=== PATIENT | male | born 1955 | race Caucasian/White ===

== ENCOUNTER 2017-01-10 09:08 | Emergency (ER) | payer OTHER ==
[~2017-01-10] VITALS: Wt 82.0 kg
[~2017-01-10 09:08] MED LIST: ACET500C5 PO; GLIP5TAB13 PO; IBUP-1542 PO; LANT3I SC; METF-382 PO; OSLT75C PO; SITA50TA2 PO; UDROBDM PO
--- NOTE | 2017-01-10 10:15 | RADRPT ---
PROCEDURE: XR Chest. CLINICAL INDICATION: Cough and fever. TECHNIQUE: Single frontal view. COMPARISON: 09/10/2015. FINDINGS: The lungs are clear. The heart size is normal. There is no pleural effusion. There is no pneumothorax. IMPRESSION: 1. Normal chest radiograph. 2. No change from 09/10/2015. RPTAT: QQ .Kevon Peña MD, MD Date Time Electronically viewed and signed by .Kevon Peña MD, MD on 01/10/2017 10:15 .R/
[2017-01-10] MEDS ORDERED: D-ME473S18 PO (10:17)
[2017-01-10] MEDS ORDERED: SIME80TA PO (10:18)
[2017-01-10] MEDS ORDERED: DOCU-144 PO (10:18)
--- NOTE | 2017-01-10 10:22 | ERD ---
ER Documentation Chief Complaint Date/Time DATE: 01/10/17 TIME: 10:20 Chief Complaint COUGH AND SORE THROAT FOR THE PAST FEW DAYS. NO FEVERS HPI This is a 62-year-old male presents to the ER with a cough and sore throat that started yesterday. Cough is dry and constant. She denies any chest pain or shortness of breath. He denies any ear pain. He denies any ear pain. Patient states he has been bloated lately and has a difficult time having a bowel movement. Patient's last normal bowel movement was last night. Patient states however he spends 15-30 minutes trying to have a bowel movement. He denies any nausea vomiting or diarrhea. ROS 12 point review of systems was done, all negative except per HPI. Medications Home Meds Active Scripts Docusate Sodium* (Colace*) 100 Mg Capsule, 100 MG PO TID, #30 CAP Prov:SHAVONNE NASSAR 01/10/17 Simethicone* (Anti-Gas/80*) 80 Mg Tab.chew, 80 MG PO Q6H Y for DISTENSION/GAS/ BLOATING for 3 Days, TAB.CHEW Prov:SHAVONNE NASSAR 01/10/17 Dextromethorphan Hb-Promethazine Hcl (Promethazine DM Syrup) 473 Ml Syrup, 10 ML PO Q6H Y for COUGH, #4 OZ Prov:SHAVONNE NASSAR 01/10/17 Guaifenesin-Dextromethorphan* (Robitussin* DM) 100MG/10MG/5ML Syrup, 10 ML PO Q4H Y for COUGH for 5 Days, ML Prov:ELPIDIO BOONE PA-C 11/01/16 Acetaminophen* (Tylophen*) 500 Mg Capsule, 1 CAP PO Q6H Y for PAIN AND OR ELEVATED TEMP, #30 CAP Prov:ELPIDIO BOONE PA-C 11/01/16 Ibuprofen* (Motrin*) 600 Mg Tab, 600 MG PO Q6, #30 TAB Prov:ELPIDIO BOONE PA-C 11/01/16 Oseltamivir Phosphate* (Tamiflu*) 75 Mg Capsule, 75 MG PO BID for 5 Days, CAP Prov:ELPIDIO BOONE PA-C 11/01/16 Reported Medications Insulin Glargine* (Lantus*) 100 Unit/Ml Soln, 30 UNIT SC HS, EA 09/10/15 Sitagliptin* (Januvia*) 50 Mg Tablet, 50 MG PO DAILY, TAB 09/10/15 Glipizide* (Glipizide*) 5 Mg Tablet, 5 MG PO DAILY, TAB 09/10/15 Metformin Hcl* (Metformin Hcl*) 500 Mg Tablet, 500 MG PO BID, TAB 09/10/15 Allergies Allergies: Coded Allergies: No Known Allergy (Unverified , 09/10/15) PMhx/Soc Hx Neurological Disorder: Yes (cva) Hx Miscellaneous Medical Probl: Yes (dm prostate enlargement; diabetes mellitus ) Hx Alcohol Use: No Hx Substance Use: No Hx Tobacco Use: No Smoking Status: Never smoker Physical Exam Vitals Vital Signs Date Time Temp Pulse Resp B/P Pulse Ox O2 Delivery O2 Flow Rate FiO2 01/10/17 09:18 98.8 92 21 163/82 98 Physical Exam GENERAL: The patient is well-developed, well-nourished, in no acute distress. NECK: Cervical spine is non tender with no step off. Supple, no nuchal rigidity HEENT: Atraumatic. Pupils equal, round and reactive to light. Extraocular muscles are grossly intact. Conjunctivae pink, no discharge. Bilateral tympanic membranes are clear with no evidence of erythema, effusion or dulling of the light reflex. Tonsilar erythema with no exudates or uvular deviation. Clear rhinorrhea. RESPIRATORY: Clear to auscultation bilaterally. There are no rales, wheezes or rhonchi. HEART: Regular rate and rhythm. No murmurs, clicks, rubs or gallops. EXTREMITIES: No clubbing or cyanosis. Full range of motion. Grossly neurovascularly intact. NEUROLOGIC: Alert and oriented. Cranial nerves II through XII are intact. SKIN: There is no rash. The skin is warm and dry. Procedures/MDM Differential diagnosis includes but is not limited to; Viral URI, allergic rhinitis, bronchitis, pertussis,pneumonia. This is likely viral in etiology. Clinical suspicion for pneumonia is low as patient appears well, is not hypoxic or in any respiratory distress. Additionally, patients physical examination is benign. Plan was discussed with patient they understand and agree. Patient needs to follow up with PCP in 1-2 days or return to ER sooner if symptoms worsen. Departure Diagnosis: Primary Impression: Upper respiratory infection Condition: Stable Patient Instructions: Preventing Common Respiratory Infections Additional Instructions: Call your primary care doctor TOMORROW for an appointment during the next 1-2 days.See the doctor sooner or return here if your condition worsens before your appointment time. SHAVONNE NASSAR Jan 10, 2017 10:21
== END 2017-01-10 10:32 | disposition home or self-care (01) ==
LOC: FTE 09:08
DX: J06.9 Acute upper respiratory infection, unspecified (principal); E11.9 Type 2 diabetes mellitus without complications; Z79.4 Long term (current) use of insulin; Z79.84 Long term (current) use of oral hypoglycemic drugs
CPT/HCPCS: 71010; Z7502

== ENCOUNTER 2017-01-22 22:22 | Emergency (ER) | payer OTHER ==
[~2017-01-22] VITALS: Ht 177.8 cm; Wt 89.0 kg
[~2017-01-22 22:22] MED LIST changes: +D-ME473S18 PO; +DOCU-144 PO; +SIME80TA PO
[2017-01-22 22:24] VITALS: Ht 177.8 cm; Wt 89.0 kg
--- NOTE | 2017-01-22 22:33 | ERA ---
ER Documentation Chief Complaint Date/Time DATE: 01/22/17 TIME: 22:32 Chief Complaint Cough HPI The patient is a 62-year-old male, presenting to the ER because of persistent dry cough for the last 2 weeks after he got over a cold. He denies fever, chills, neck pain, chest pain, dyspnea, abdominal pain, vomiting, diarrhea, dysuria. He does not smoke nor drink Past medical history: Diabetes mellitus, BPH Past surgical history: None ROS All systems reviewed and are negative except as per history of present illness. Medications Home Meds Active Scripts Azithromycin* (Zithromax*) 250 Mg Tablet, 250 MG PO .ZPACK DIRECTED, #6 TAB TAKE 500 MG (2 TABS) THE FIRST DAY THEN 250 MG (1 TAB) DAYS 2-5 Prov:VERONICA DIAZ MD 01/22/17 Docusate Sodium* (Colace*) 100 Mg Capsule, 100 MG PO TID, #30 CAP Prov:SHAVONNE NASSAR 01/10/17 Simethicone* (Anti-Gas/80*) 80 Mg Tab.chew, 80 MG PO Q6H Y for DISTENSION/GAS/ BLOATING for 3 Days, TAB.CHEW Prov:SHAVONNE NASSAR 01/10/17 Dextromethorphan Hb-Promethazine Hcl (Promethazine DM Syrup) 473 Ml Syrup, 10 ML PO Q6H Y for COUGH, #4 OZ Prov:SHAVONNE NASSAR 01/10/17 Guaifenesin-Dextromethorphan* (Robitussin* DM) 100MG/10MG/5ML Syrup, 10 ML PO Q4H Y for COUGH for 5 Days, ML Prov:ELPIDIO BOONE PA-C 11/01/16 Acetaminophen* (Tylophen*) 500 Mg Capsule, 1 CAP PO Q6H Y for PAIN AND OR ELEVATED TEMP, #30 CAP Prov:ELPIDIO BOONE PA-C 11/01/16 Ibuprofen* (Motrin*) 600 Mg Tab, 600 MG PO Q6, #30 TAB Prov:ELPIDIO BOONE PA-C 11/01/16 Oseltamivir Phosphate* (Tamiflu*) 75 Mg Capsule, 75 MG PO BID for 5 Days, CAP Prov:ELPIDIO BOONE PA-C 11/01/16 Reported Medications Insulin Glargine* (Lantus*) 100 Unit/Ml Soln, 30 UNIT SC HS, EA 09/10/15 Sitagliptin* (Januvia*) 50 Mg Tablet, 50 MG PO DAILY, TAB 09/10/15 Glipizide* (Glipizide*) 5 Mg Tablet, 5 MG PO DAILY, TAB 09/10/15 Metformin Hcl* (Metformin Hcl*) 500 Mg Tablet, 500 MG PO BID, TAB 09/10/15 Allergies Allergies: Coded Allergies: No Known Allergy (Unverified , 09/10/15) PMhx/Soc Hx Neurological Disorder: Yes (cva) Hx Miscellaneous Medical Probl: Yes (dm prostate enlargement; diabetes mellitus ) Hx Alcohol Use: No Hx Substance Use: No Hx Tobacco Use: No Physical Exam Vitals Vital Signs Date Time Temp Pulse Resp B/P Pulse Ox O2 Delivery O2 Flow Rate FiO2 01/22/17 23:15 97.3 98 19 129/74 97 Room Air 01/22/17 22:24 96.9 101 20 136/62 96 Physical Exam Const: No acute distress. Head: Atraumatic. Eyes: Normal Conjunctiva. ENT: Normal External Ears, Nose and Mouth. Bilateral tympanic membrane and oropharynx are within normal limits Neck: Full range of motion. No meningismus. Resp: Clear to auscultation bilaterally. Cardio: Regular rate and rhythm, no murmurs. Abd: Soft, non distended, normal bowel sounds, non tender. Skin: No petechiae or rashes. Back: No midline or flank tenderness. Ext: No cyanosis, or edema. Neur: Awake and alert. No focal deficit Psych: Normal Mood and Affect. Procedures/MDM MEDICAL MAKING DECISION: The patient is a 62-year-old male, presenting with acute bronchitis. The differential diagnoses considered include but are not limited to asthma, COPD, pneumonia, pulmonary embolus, pleural effusion, congestive heart failure. Departure Diagnosis: Primary Impression: Bronchitis Condition: Good Comments He was discharged with Zithromax, he already has cough medicine I discussed the findings with the patient. I advised the patient to follow-up with the primary physician in about 1-2 days, sooner if needed and return if any concern. The patient's blood pressure was elevated (>120/80) but appears stable without evidence of hypertension emergency or urgency. The patient was counseled about the risks of hypertension and urged to pursue outpatient monitoring and therapy within a week with their primary care physician. VERONICA DIAZ MD Jan 22, 2017 22:33
[2017-01-22] MEDS ORDERED: AZIT250T94 PO (22:56)
[2017-01-22 23:15] VITALS: BP 129/74; PULSE 98; RESP 19; TEMP 97.3
== END 2017-01-22 23:15 | disposition home or self-care (01) ==
LOC: FTE 22:22
DX: J20.9 Acute bronchitis, unspecified (principal); E11.9 Type 2 diabetes mellitus without complications; Z79.4 Long term (current) use of insulin; Z79.84 Long term (current) use of oral hypoglycemic drugs
CPT/HCPCS: 99283

== ENCOUNTER 2017-03-22 10:05 | Emergency (ER) | payer OTHER ==
[~2017-03-22] VITALS: Ht 165.1 cm; Wt 90.5 kg
[~2017-03-22 10:05] MED LIST changes: +AZIT250T94 PO; -METF-382 PO; +METF500T4 PO
[2017-03-22 10:08] VITALS: Ht 165.1 cm; Wt 90.5 kg
--- NOTE | 2017-03-22 10:27 | ERD ---
ER Documentation Chief Complaint Date/Time DATE: 03/22/17 TIME: 10:25 Chief Complaint tooth pain HPI 62-year-old male who presents to the emergency department for right upper tooth pain since Thursday. Denies headache, loss of consciousness, dizziness, blurry vision, changes in vision, photophobia, facial pain, ear pain, throat pain, difficulty swallowing, neck pain, shoulder pain, chest pain, cough, hemoptysis, abdominal pain, back pain, loss of appetite, nausea, vomiting, hematochezia, diarrhea, constipation, urinary symptoms, bladder and bowel incontinences, extremity weakness, extremity tenderness, numbness or tingling sensation, difficulty walking, recent travel, recent exposure to illness, recent antibiotic use in the last 3 months, fever, chills. No known drug allergies. Past medical history of diabetes and prostate problem. Denies surgical history. Medication: Reviewed. Social history: Not working at this time. Denies smoking, use of alcohol, use of illegal drugs. ROS All systems reviewed and are negative except as per history of present illness. Medications Home Meds Active Scripts Ibuprofen* (Motrin*) 800 Mg Tab, 800 MG PO Q8, #30 TAB Prov:RAFAELILABANVIKYAR F 03/22/17 Acetaminophen* (Tylophen*) 500 Mg Capsule, 1 CAP PO Q6H Y for PAIN AND OR ELEVATED TEMP, #20 CAP Prov:PASILABANVIKYAR F 03/22/17 Amoxicillin* (Amoxicillin*) 500 Mg Cap, 500 MG PO TID for 7 Days, CAP Prov:PASILABAN,KLAR F 03/22/17 Azithromycin* (Zithromax*) 250 Mg Tablet, 250 MG PO .CAROL DIRECTED, #6 TAB TAKE 500 MG (2 TABS) THE FIRST DAY THEN 250 MG (1 TAB) DAYS 2-5 Prov:VERONICA DIAZ MD 01/22/17 Docusate Sodium* (Colace*) 100 Mg Capsule, 100 MG PO TID, #30 CAP Prov:SHAVONNE NASSAR 01/10/17 Simethicone* (Anti-Gas/80*) 80 Mg Tab.chew, 80 MG PO Q6H Y for DISTENSION/GAS/ BLOATING for 3 Days, TAB.CHEW Prov:SHAVONNE NASSAR 01/10/17 Dextromethorphan Hb-Promethazine Hcl (Promethazine DM Syrup) 473 Ml Syrup, 10 ML PO Q6H Y for COUGH, #4 OZ Prov:SHAVONNE NASSAR 01/10/17 Guaifenesin-Dextromethorphan* (Robitussin* DM) 100MG/10MG/5ML Syrup, 10 ML PO Q4H Y for COUGH for 5 Days, ML Prov:ELPIDIO BOONE PA-C 11/01/16 Acetaminophen* (Tylophen*) 500 Mg Capsule, 1 CAP PO Q6H Y for PAIN AND OR ELEVATED TEMP, #30 CAP Prov:ELPIDIO BOONE PA-C 11/01/16 Ibuprofen* (Motrin*) 600 Mg Tab, 600 MG PO Q6, #30 TAB Prov:ELPIDIO BOONE PA-C 11/01/16 Oseltamivir Phosphate* (Tamiflu*) 75 Mg Capsule, 75 MG PO BID for 5 Days, CAP Prov:ELPIDIO BOONE PA-C 11/01/16 Reported Medications Insulin Glargine* (Lantus*) 100 Unit/Ml Soln, 30 UNIT SC HS, EA 09/10/15 Sitagliptin* (Januvia*) 50 Mg Tablet, 50 MG PO DAILY, TAB 09/10/15 Glipizide* (Glipizide*) 5 Mg Tablet, 5 MG PO DAILY, TAB 09/10/15 Metformin Hcl* (Metformin Hcl*) 500 Mg Tablet, 500 MG PO BID, TAB 09/10/15 Allergies Allergies: Coded Allergies: No Known Allergy (Unverified , 09/10/15) PMhx/Soc Hx Neurological Disorder: Yes (cva) Hx Miscellaneous Medical Probl: Yes (dm prostate enlargement; diabetes mellitus ) Hx Alcohol Use: Yes (rarely) Hx Substance Use: No Hx Tobacco Use: No Physical Exam Vitals Vital Signs Date Time Temp Pulse Resp B/P Pulse Ox O2 Delivery O2 Flow Rate FiO2 03/22/17 10:08 98.0 85 18 145/78 99 Physical Exam CONSTITUTIONAL: Well-appearing; well-nourished; in no apparent distress. HEAD: Normocephalic; atraumatic. EYES: Conjunctiva clear, sclera non-icteric, EOM intact. PERRL Ears: Hearing intact. EACs clear, TMs non-bulging, non-inflamed, translucent & mobile, ossicles normal appearance, No obstructions, no erythema, no discharges Nose: No obstructions. No polyps. No external lesions. Mucosa non-inflamed. No external lesions, septum and turbinates normal. No rhinorrhea. No discharges. Frontal sinus is non-tender to palpation. Maxillary sinus is non-tender to palpation. MOUTH: Moist mucous membranes, no lesion, no obstructions, no vesicles, no thrush, patent airway. Right upper second molar/gum swelling with tenderness to palpation. No discharge. No bleeding. No tooth avulsion. Throat: Uvula in midline. Right tonsil is +1 with no erythema, no exudate. Left tonsil is +1 with no erythema, no exudate. Tolerating secretions well. Good gag reflex. Patent airway. Neck: Supple, without lesions, bruits, or adenopathy. No mass. Thyroid non- enlarged and non-tender to palpation. CHEST: Symmetrical chest. Respirations even and not labored. No retractions noted. CARDIOVASCULAR: Normal S1, S2. RRR. No murmurs, gallops. RESPIRATORY: Normal chest excursion with respiration; breath sounds clear and equal bilaterally; no wheezes, rhonchi, or rales. Breathing even and unlabored. Speaking in clear, full, and complete sentences w/ ease. ABDOMEN: Normal bowel sounds normal. Soft, round, non-distended, non-guarding, no tenderness, no rebound, no organomegaly, no masses, no pulsating abdominal mass. No hernia. No peritoneal signs. : No CVA tenderness. BACK: Symmetrical shoulder. Spine is midline without deformity, tenderness. No evidence of trauma or deformity. PELVIS: Stable pelvis. No evidence of trauma or deformity. MUSCULOSKELETAL: Normal gait and station. No misalignment, asymmetry, crepitation, defects, tenderness, masses, effusions, decreased range of motion, instability, atrophy or abnormal strength or tone in the head, neck, spine, ribs , pelvis or extremities. No calf tenderness. NEUROVASCULAR: Distal pulses are present. Pedal pulse are present, equal, and normal. Capillary refills are < 2 seconds. NEUROLOGIC: Alert and oriented x4. Speaks full and clear sentences. Cranial Nerves II-XII normal. Sensation to pain, touch, and proprioception normal. Grossly unremarkable. No neurologic deficits. Romberg test is negative. PSYCHOLOGICAL: The patients mood and manner are appropriate. No hallucinations , delusions. Not SI. Not HI. Has the capacity to decide for self SKIN: Normal for age and ethnicity; warm; dry; good turgor; no apparent lesions or exudates. No rashes, hives, discoloration. Intact. Procedures/MDM Examination: Please see physical examination. Disease process, medical treatment was explained to the patient and family member. They verbalized understanding and agreed with the medical treatment, and follow-up care. Re-evaluation: Denies headache, dizziness, blurry vision, neck pain, shoulder pain, chest pain, abdominal pain. No episode of emesis in the emergency department. Tolerating secretions. No difficulty swallowing. Patent airway. Speaks full and clear sentences. Respirations even and unlabored. Lung sounds are clear to auscultation. No neurovascular deficits. No neurological deficits. Consultation: None. Differential diagnosis: Tooth abscess versus tooth decay versus sinusitis Medical decision makin-year-old male who presents to the emergency department for right upper tooth pain since Thursday. Patient's complaint, patient's history about his complaint, my physical findings, my reevaluation are consistent with my final diagnosis of tooth abscess. Medications prescribed are the following: Amoxicillin. Motrin. Patient and family member are made aware of the side effects and adverse reactions of the medications prescribed. Instructed on when to seek emergent and medical attention in case allergic/anaphylactic reactions or severe side effects and or adverse reactions to medications. Patient and family member verbalized understanding. Patient instructed Instructed to follow-up with his PCP in 24-48 hours. Follow-up with dentist in the next 24-48 hours. Instructed to Call 911 for chest pain, shortness of breath. Advised to come back here in ED as soon as possible for severity of symptoms which includes but not limited to: any new symptoms; shortness of breath/difficulty of breathing; cardiovascular changes; severe gastrointestinal symptoms; signs and symptoms of bleeding and or infection; signs of compartment syndrome/neurovascular changes; neurological changes/deficits. Patient and family member verbalized understanding. Upon discharge, patient is alert and oriented x 4, speaks full and clear sentences, denies pain, has no neurological deficits, has no neurovascular deficits, difficulty of breathing. Breathing even and unlabored. Lung sounds are clear to auscultation. Not in distress. Appears comfortable. Ambulatory with steady gait. Appears satisfied with care provided here in ED. Departure Diagnosis: Primary Impression: Toothache Condition: Stable Additional Instructions: Patient instructed Instructed to follow-up with his PCP in 24-48 hours. Follow-up with dentist in the next 24-48 hours. Instructed to Call 911 for chest pain, shortness of breath. Advised to come back here in ED as soon as possible for severity of symptoms which includes but not limited to: any new symptoms; shortness of breath/difficulty of breathing; cardiovascular changes; severe gastrointestinal symptoms; signs and symptoms of bleeding and or infection; signs of compartment syndrome/neurovascular changes; neurological changes/deficits. Patient and family member verbalized understanding. BEN ESCALANTE March 22, 2017 10:27
[2017-03-22] MEDS ORDERED: AMO500 PO (10:28)
[2017-03-22] MEDS ORDERED: ACET500C5 PO (10:29)
[2017-03-22] MEDS ORDERED: IBUP800T25 PO (10:30)
== END 2017-03-22 10:48 | disposition home or self-care (01) ==
LOC: FTE 10:05
DX: K08.89 Other specified disorders of teeth and supporting structures (principal); E11.9 Type 2 diabetes mellitus without complications; Z79.4 Long term (current) use of insulin; Z79.84 Long term (current) use of oral hypoglycemic drugs
CPT/HCPCS: 99283

== ENCOUNTER 2017-07-06 17:23 | Emergency (ER) | payer OTHER ==
[~2017-07-06] VITALS: Ht 177.8 cm; Wt 90.0 kg
[~2017-07-06 17:23] MED LIST changes: +AMO500 PO; +IBUP800T25 PO
[2017-07-06 17:26] VITALS: Ht 177.8 cm; Wt 90.0 kg
--- NOTE | 2017-07-06 17:51 | ERD ---
ER Documentation Chief Complaint Date/Time DATE: 07/06/17 TIME: 17:51 Chief Complaint LT EAR PAIN X 3 WEEKS. PROBLEM WITH MIDDLE FINGER LT HAND HPI FB in left ear ROS All systems reviewed and are negative except as per history of present illness. Medications Home Meds Active Scripts Ibuprofen* (Motrin*) 800 Mg Tab, 800 MG PO Q8, #30 TAB Prov:PASILABANVIKYAR F 03/22/17 Acetaminophen* (Tylophen*) 500 Mg Capsule, 1 CAP PO Q6H Y for PAIN AND OR ELEVATED TEMP, #20 CAP Prov:PASILABAN,VIKYAR F 03/22/17 Amoxicillin* (Amoxicillin*) 500 Mg Cap, 500 MG PO TID for 7 Days, CAP Prov:RAFAELILAVIKY MUELLERAR F 03/22/17 Azithromycin* (Zithromax*) 250 Mg Tablet, 250 MG PO .ZPACK DIRECTED, #6 TAB TAKE 500 MG (2 TABS) THE FIRST DAY THEN 250 MG (1 TAB) DAYS 2-5 Prov:VERONICA DIAZ MD 01/22/17 Docusate Sodium* (Colace*) 100 Mg Capsule, 100 MG PO TID, #30 CAP Prov:SHAVONNE NASSAR 01/10/17 Simethicone* (Anti-Gas/80*) 80 Mg Tab.chew, 80 MG PO Q6H Y for DISTENSION/GAS/ BLOATING for 3 Days, TAB.CHEW Prov:SHAVONNE NASSAR 01/10/17 Dextromethorphan Hb-Promethazine Hcl (Promethazine DM Syrup) 473 Ml Syrup, 10 ML PO Q6H Y for COUGH, #4 OZ Prov:SHAVONNE NASSAR 01/10/17 Guaifenesin-Dextromethorphan* (Robitussin* DM) 100MG/10MG/5ML Syrup, 10 ML PO Q4H Y for COUGH for 5 Days, ML Prov:ELPIDIO BOONE PA-C 11/01/16 Acetaminophen* (Tylophen*) 500 Mg Capsule, 1 CAP PO Q6H Y for PAIN AND OR ELEVATED TEMP, #30 CAP Prov:ELPIDIO BOONE PA-C 11/01/16 Ibuprofen* (Motrin*) 600 Mg Tab, 600 MG PO Q6, #30 TAB Prov:ELPIDIO BOONE PA-C 11/01/16 Oseltamivir Phosphate* (Tamiflu*) 75 Mg Capsule, 75 MG PO BID for 5 Days, CAP Prov:ELPIDIO BOONE PA-C 11/01/16 Reported Medications Insulin Glargine* (Lantus*) 100 Unit/Ml Soln, 30 UNIT SC HS, EA 09/10/15 Sitagliptin* (Januvia*) 50 Mg Tablet, 50 MG PO DAILY, TAB 09/10/15 Glipizide* (Glipizide*) 5 Mg Tablet, 5 MG PO DAILY, TAB 09/10/15 Metformin Hcl* (Metformin Hcl*) 500 Mg Tablet, 500 MG PO BID, TAB 09/10/15 Allergies Allergies: Coded Allergies: No Known Allergy (Unverified , 09/10/15) PMhx/Soc Hx Neurological Disorder: Yes (cva) Hx Miscellaneous Medical Probl: Yes (dm prostate enlargement; diabetes mellitus ) Hx Alcohol Use: Yes (rarely) Hx Substance Use: No Hx Tobacco Use: No Physical Exam Vitals Vital Signs Date Time Temp Pulse Resp B/P Pulse Ox O2 Delivery O2 Flow Rate FiO2 07/06/17 17:26 97.2 95 16 185/86 97 Stable, triage notes reviewed blood pressure noted to be 185/86. Physical Exam Const: Well-appearing well-hydrated, well-nourished in no acute distress Head: Atraumatic Eyes: Normal Conjunctiva PERRLA, EOMI ENT: Right tympanic membrane retracted and dry, left tympanic membrane obstructed with a wet cotton. Neck: Full range of motion..~ No meningismus. Resp: Cardio: Abd: Skin: Back: Ext: Neur: Awake and alert Psych: Normal Mood and Affect Procedures/MDM This 62-year-old presents to emergency department with foreign body in left ear. Ports that he was seen and treated by a gear room keeper had debris vacuumed out of his ear started on antibiotics on the right ear. Patient reports that he was cleaning his left ear with cotton swab and states he feels like there is water trapped in his ear. Patient reports decreased hearing, states he has tried "to use my vacuum belt cleaner to suck out the water" with little relief of symptoms. Patient denies any pain, fever, nasal congestion, or dizziness. Physical exam findings suggest wet cotton noted on tympanic membrane will need to be removed with alligator scissors I have tried this with little success. Dr. Baxter is in workstation asked to consult to remove foreign body. Physician is able to remove foreign body without incident large piece of cotton without infection. Patient is stable with no new complaints during ER course, clinically there is no current evidence to suggest meningitis, mastoiditis, parotiditis or any other emergent condition appearing to require further evaluation or hospitalization. I feel the patient is stable for discharge at this time. I have discussed results, examination findings, the treatment plan with the patient and family present prior to discharge. Indications for emergent reevaluation, side effects of medication were also discussed. All questions were answered. Patient verbalizes understanding and agrees with plan of care. Departure Diagnosis: Primary Impression: FB ear Encounter type: initial encounter Laterality: left Qualified Code: T16.2XXA - Foreign body of left ear, initial encounter Condition: Good Patient Instructions: Foreign Body, Ear Canal (Removed) [facility]errals: [facility] Additional Instructions: Thank you for for coming to [facility] for your care today. Please ask your nurse or provider if you have questions about your care today and do not leave until all your questions have been answered. Please use any medications given as directed and follow-up with your doctor (or the doctor you were referred to) in the next 2-3 days. If you do not have a primary care doctor you may follow up at the [facility] (listed below). You may also use motrin and tylenol as needed for fever and/or pain unless instructed otherwise by your provider or nurse. Indications for more urgent follow-up have been discussed, but you may return to the Emergency Department at ANY time for any worrisome or worsening symptoms. If you have abdominal pain, please know that no test or exam you received is perfect and you should follow up within 8 hours for continued pain. If you had any imaging studies today, such as an X-Ray or CT Scan, these studies will be reviewed later by a radiologist. You will be called if there are important findings that were not identified today, so make sure the contact information you provided at registration is correct. If you received any narcotic pain control medicine today, such as Vicodin, Morphine or Dilaudid, your coordination and judgment may be affected for a number of hours. Please do not drive or operate heavy machinery, and you may want someone to assist you at home. If you were given a prescription for narcotic medication, be aware that it is very addictive- use sparingly and only if necessary. NANCY MOSS Jul 06, 2017 17:51
--- NOTE | 2017-07-06 19:14 | CONS ---
Date/Time of Note Date/Time of Note DATE: 07/06/17 TIME: 19:03 Pediatric Otolaryngology/Head & Neck Surgery Consultation and Procedure Note Assessment: Foreign body--left ear external ear canal--removed (see below) Recommendations: Continue his otic antibiotic drops in left ear prn Followup by PMD Reason for ENT Consultation:Called to see this 62 y.o. man with foreign body in left ear canal Physician requesting consultation ED staff--Kevon Mcclelland M.D. HPI: Patient states that he saw MD for right otalgia who irrigated his ear and prescribed otic drops, which has caused all symptoms in right ear to resolve. 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 Allergies: None Prior surgeries: None Prior hospitalizations: None Major medical illnesses: None Medications prior to hospitalization: None Review of Systems: Non-contributory Exam Well-developed well-nourished WM in no distress Head-normocephalic Eyes-MARCO, EOMs normal Ears-auricles normal. Right EAC nl . Left EAC has white mass covering the TM and the EAC skin is mildly swollen, narrowing the lumen. Nose-clear without lesions or polyps. Oropharynx-normal. Tonsils 2+ right/2+ left, size Normal palate Neck-normal, without masses, adenopathy, or thyromegaly. Procedure performed: Removal of foreign body from left external auditory canal: Surgeon: Maura CANTOR Performed in ED [facility] Anesthesia: None Description: The left EAC was inspected with a headlight and magnification and suctioned clear, and a white material or foreign body was seen overlying the TM. First I used suction to elevate the foreign body off of the TM and then a small hook was gently passed over the foreign body and the FB was removed and shown to the patient. It was a tight cotton ball which had been wedged against the TM. He felt much relief and feels like his ear is back to normal. The EAC was suctioned again and sterile saline was instilled and the cerumen impaction was used with suction. The TM is normal--no perforation visible. He could hear a whisper in the left ear on confrontational testing at the end of the procedure. EBL: None Complications: none VALERI NICK MD Jul 06, 2017 19:14
[2017-07-06 19:15] VITALS: BP 156/74; PULSE 78; RESP 18; TEMP 98.2
== END 2017-07-06 19:19 | disposition home or self-care (01) ==
LOC: FTE 17:23
DX: T16.2XXA Foreign body in left ear, initial encounter (principal); E11.9 Type 2 diabetes mellitus without complications; X58.XXXA Exposure to other specified factors, initial encounter; Y92.9 Unspecified place or not applicable; Z79.4 Long term (current) use of insulin; Z79.84 Long term (current) use of oral hypoglycemic drugs
CPT/HCPCS: 69200; Z7502